=== PATIENT | female | born 1950 | race Caucasian/White ===

== ENCOUNTER 2020-12-07 22:11 | Emergency (ER) | payer MEDICARE, OTHER ==
[~2020-12-07] VITALS: Ht 150 cm; Wt 68.5 kg
--- NOTE | 2020-12-07 22:13 | ED General ---
General Stated Complaint: MUSCLE TWITCHING History of Present Illness Date Seen by Provider: Dec 07, 2020 Time Seen by Provider: 22:13 Initial Comments 70-year-old female presents her earlier this evening that she "got really hot" and that after she got really hot she kind got "sick to her stomach" patient reports that she just feels not well. Patient reports she did not vomit. She denies any urinary symptoms. She denies any cough, shortness of breath. Patient did have an episode at which she was "shaky" that resolved immediately after EMS arrived. Patient does not have any symptoms reported upon arrival to the ER that have continued. No reports of nausea, vomiting diarrhea Allergies and Home Medications Allergies Coded Allergies: No Known Drug Allergies (Unverified , 12/07/20) Patient Home Medication List Home Medication List Reviewed: Yes Review of Systems Review of Systems Constitutional: see HPI EENTM: no symptoms reported Respiratory: no symptoms reported Cardiovascular: no symptoms reported Gastrointestinal: no symptoms reported Genitourinary: no symptoms reported Musculoskeletal: no symptoms reported Skin: no symptoms reported Psychiatric/Neurological: See HPI Hematologic/Lymphatic: No Symptoms Reported Immunological/Allergic: no symptoms reported Physical Exam Vital Signs Vital Signs - First Documented 12/07/20 22:11 Temp 36.9 Pulse 88 Resp 22 B/P (MAP) 143/95 (111) Pulse Ox 97 O2 Delivery Room Air Capillary Refill : Height, Weight, BMI Height: '" Weight: lbs. oz. kg; BMI Method: General Appearance: WD/WN HEENT: PERRL/EOMI Neck: Full Range of Motion Respiratory: Lungs Clear, Normal Breath Sounds Cardiovascular: Regular Rate, Rhythm, No Edema Gastrointestinal: Non Tender Extremity: Normal Capillary Refill Neurologic/Psychiatric: Alert, No Motor/Sensory Deficits, sales route driver II-XII Norm as Tested Skin: Normal Color, Warm/Dry Progress/Results/Core Measures Suspected Sepsis SIRS Temperature: Pulse: Respiratory Rate: Laboratory Tests 12/07/20 22:15: White Blood Count 10.5 Blood Pressure / Mean: Laboratory Tests 12/07/20 22:15: Creatinine 0.88, Platelet Count 562H, Total Bilirubin 0.2 Results/Orders Lab Results Laboratory Tests Test 12/07/20 22:15 12/07/20 22:48 Range/Units White Blood Count 10.5 4.3-11.0 10^3/uL Red Blood Count 3.77 L 4.35-5.85 10^6/uL Hemoglobin 9.7 L 11.5-16.0 G/DL Hematocrit 31 L 35-52 % Mean Corpuscular Volume 81 80-99 FL Mean Corpuscular Hemoglobin 26 25-34 PG Mean Corpuscular Hemoglobin Concent 32 32-36 G/DL Red Cell Distribution Width 17.2 H 10.0-14.5 % Platelet Count 562 H 130-400 10^3/uL Mean Platelet Volume 9.7 7.4-10.4 FL Immature Granulocyte % (Auto) 0 % Neutrophils (%) (Auto) 63 42-75 % Lymphocytes (%) (Auto) 26 12-44 % Monocytes (%) (Auto) 8 0-12 % Eosinophils (%) (Auto) 2 0-10 % Basophils (%) (Auto) 1 0-10 % Neutrophils # (Auto) 6.6 1.8-7.8 X 10^3 Lymphocytes # (Auto) 2.7 1.0-4.0 X 10^3 Monocytes # (Auto) 0.8 0.0-1.0 X 10^3 Eosinophils # (Auto) 0.3 0.0-0.3 10^3/uL Basophils # (Auto) 0.1 0.0-0.1 10^3/uL Immature Granulocyte # (Auto) 0.0 0.0-0.1 10^3/uL Sodium Level 138 135-145 MMOL/L Potassium Level 3.5 L 3.6-5.0 MMOL/L Chloride Level 103 98-107 MMOL/L Carbon Dioxide Level 22 21-32 MMOL/L Anion Gap 13 5-14 MMOL/L Blood Urea Nitrogen 14 7-18 MG/DL Creatinine 0.88 0.60-1.30 MG/DL Estimat Glomerular Filtration Rate 63 BUN/Creatinine Ratio 16 Glucose Level 110 H 70-105 MG/DL Calcium Level 9.3 8.5-10.1 MG/DL Corrected Calcium 9.5 8.5-10.1 MG/DL Total Bilirubin 0.2 0.1-1.0 MG/DL Aspartate Amino Transf (AST/SGOT) 10 5-34 U/L Alanine Aminotransferase (ALT/SGPT) 5 0-55 U/L Alkaline Phosphatase 65 40-136 U/L C-Reactive Protein 12.98 H <0.50 MG/DL Total Protein 6.9 6.4-8.2 GM/DL Albumin 3.7 3.2-4.5 GM/DL Urine Color YELLOW Urine Clarity SLIGHTLY CLOUDY Urine pH 5.5 5-9 Urine Specific [place] 1.015 L 1.016-1.022 Urine Protein NEGATIVE NEGATIVE Urine Glucose (UA) NEGATIVE NEGATIVE Urine Ketones NEGATIVE NEGATIVE Urine Nitrite POSITIVE H NEGATIVE Urine Bilirubin NEGATIVE NEGATIVE Urine Urobilinogen 0.2 < = 1.0 MG/DL Urine Leukocyte Esterase TRACE H NEGATIVE Urine RBC (Auto) NEGATIVE NEGATIVE Urine RBC NONE /HPF Urine WBC 5-10 H /HPF Urine Squamous Epithelial Cells 5-10 /HPF Urine Crystals NONE /LPF Urine Bacteria LARGE H /HPF Urine Casts NONE /LPF Urine Mucus NEGATIVE /LPF Urine Culture Indicated YES My Orders Orders - BROWNLEE,TERRENCE L DO Cbc With Automated Diff (12/07/20 22:23) Comprehensive Metabolic Panel (12/07/20 22:23) Ua Culture If Indicated (12/07/20 22:23) Crp Fs (12/07/20 22:23) Covid 19 Inhouse Test (12/07/20 22:23) Influenza A And B By Pcr (12/07/20 22:23) Urine Culture (12/07/20 22:48) Rocephin 1 Gm Iv (1x Dose) (12/07/20 23:30) Vital Signs/I&O 12/07/20 22:11 Temp 36.9 Pulse 88 Resp 22 B/P (MAP) 143/95 (111) Pulse Ox 97 O2 Delivery Room Air Capillary Refill : Departure Impression Primary Impression: Urinary tract infection Qualified Codes: N30.01 - Acute cystitis with hematuria Disposition: HOME, SELF-CARE Condition: Stable Departure-Patient Inst. Patient Instructions: Urinary Tract Infection, Adult (DC) Add. Discharge Instructions: Follow-up with your primary care provider in 1 week to recheck your urine Scripts Nitrofurantoin Macrocrystal (Nitrofurantoin) 100 Mg Capsule 100 MG PO BID, #14 CAP 0 Refills Prov: BROWNLEE,TERRENCE L DO 12/07/20 BROWNLEE,TERRENCE L DO Dec 07, 2020 22:13
[2020-12-07 22:31] LABS: BASOPHILS # (AUTO) 0.1 10^3/uL (0.0-0.1); BASOPHILS % (AUTO) 1 % (0-10); EOSINOPHILS # (AUTO) 0.3 10^3/uL (0.0-0.3); EOSINOPHILS % (AUTO) 2 % (0-10); HEMATOCRIT 31 % (35-52); HEMOGLOBIN 9.7 G/DL (11.5-16.0); LYMPHOCYTES # (AUTO) 2.7 X 10^3 (1.0-4.0); LYMPHOCYTES % (AUTO) 26 % (12-44); MEAN CORPUSCULAR HEMOGLOBIN 26 PG (25-34); MEAN CORPUSCULAR HGB CONC 32 G/DL (32-36); MEAN CORPUSCULAR VOLUME 81 FL (80-99); MEAN PLATELET VOLUME 9.7 FL (7.4-10.4); MONOCYTES # (AUTO) 0.8 X 10^3 (0.0-1.0); MONOCYTES % (AUTO) 8 % (0-12); NEUTROPHILS # (AUTO) 6.6 X 10^3 (1.8-7.8); NEUTROPHILS % (AUTO) 63 % (42-75); PLATELET COUNT 562 10^3/uL (130-400); WHITE BLOOD COUNT 10.5 10^3/uL (4.3-11.0)
[2020-12-07 22:48] LABS: ALBUMIN 3.7 GM/DL (3.2-4.5); BILIRUBIN,TOTAL 0.2 MG/DL (0.1-1.0); CALCIUM 9.3 MG/DL (8.5-10.1); CREATININE SERUM 0.88 MG/DL (0.60-1.30); POTASSIUM 3.5 MMOL/L (3.6-5.0); TOTAL PROTEIN 6.9 GM/DL (6.4-8.2)
[2020-12-07 22:58] LABS: CLARITY,URINE SLIGHTLY CLOUDY; COLOR,URINE YELLOW
[2020-12-07 22:59] LABS: BACTERIA,URINE LARGE /HPF; BILIRUBIN,URINE NEGATIVE (NEGATIVE); GLUCOSE, URINE (UA) NEGATIVE (NEGATIVE); KETONES,URINE NEGATIVE (NEGATIVE); LEUKOCYTE ESTERASE ,URINE TRACE (NEGATIVE); NITRITE,URINE POSITIVE (NEGATIVE); PH,URINE 5.5 (5-9); PROTEIN,URINE NEGATIVE (NEGATIVE)
[2020-12-07] MEDS ORDERED: NITR100C PO (23:23)
[2020-12-07] MEDS ORDERED: cefTRIAXone 1,000 MG in WATER (STERILE) FOR INJECTION 10 ML IV ONE (23:30)
[2020-12-07] MEDS ORDERED: NITROFURANTOIN 100 MG (MACROBID) CAPSULE PO ONE (23:30)
[2020-12-07 23:31] VITALS: BP 142/88
--- OUTSIDE RECORDS SUMMARY | 2020-12-08 22:42 | XMS REPORT ---
Author Author Ana Neumann [facility] Address [address] [place], [place] [id number] Care Team Providers Care Single Needle Operator Name Role Phone Ulises Neumann PCP Ulises Neumann PreferredProvider Allergies and Adverse Reactions Name Reaction Notes NO KNOWN DRUG ALLERGIES Plan of Treatment Not available. Medications Active Name Start Date Estimated Completion Date SIG Co mments omeprazole 40 mg capsule,delayed release take 1 capsule (40 mg) by oral route once daily before a meal Voltaren 1 % topical gel apply 2 grams to the affected area(s) by topical route 4 times per day albuterol sulfate HFA 90 mcg/actuation aerosol inhaler inhale 1 puff (90 mcg) by inhalation route every 6 hours as needed Vitamin D3 25 mcg (1,000 unit) capsule ta ke 1 capsule by oral route daily docusate sodium 100 mg capsule t alex 1 capsule (100 mg) by oral route once daily meloxicam 7.5 mg tablet 11/21/2020 12/21/2020 take 1 t ablet by oral route once a day (at bedtime) for 30 days Tylenol Arthritis Pain 650 mg tablet,extended release 11/21/2020 12/21/2020 take 2 tablets (1,300 mg) by oral route every 8 hours swallowing whole with water. Do not break, crush, dissolve and/or chew. for 30 days sertraline 50 mg tablet 11/21/2020 02/19/2021 take 1 t ablet (50 mg) by oral route once daily for 90 days Name Start Date Expiration Date SIG Comments Macrobid 100 mg capsule 11/12/2020 11/19/2020 take 1 c apsule (100 mg) by oral route 2 times per day with food for 7 days Discontinued Name Start Date Discontinued Date SIG Comments tramadol 50 mg tablet 11/05/2020 11/21/2020 take 1 tab let by oral route 3 times a day as needed breakthrough arthritic pain Problem List Description Status Onset HTN (hypertension) Active Acid reflux Active Anxiety Active Vital Signs Date Time BP-Sys(mm[Hg] BP-Kandy(mm[Hg]) HR(bpm) RR(rpm) Temp WT HT HC BMI BSA BMI Percentile O2 Sat(%) 11/21/2020 8:15:00 AM 122 mm[Hg] 70 mm[Hg] 87 {beats}/min 18 rpm 98.6 F 155.312 lbs 59 in 31.369 kg/m2 1.7125 m2 95 % 11/05/2020 3:46:00 PM 134 mm[Hg] 82 mm[Hg] 103 {beats}/min 20 rpm 98.1 F 158 lbs 59 in 31.91 kg/m2 1.73 m2 95 % 10/01/2020 3:24:00 PM 150 mm[Hg] 88 mm[Hg] 88 {beats}/min 18 rpm 98.4 F 163 lbs 59 in 32.9217 kg/m2 1.7544 m2 97 % Social History Name Description Comments Tobacco Unknown if ever smoked History of Procedures Date Ordered Description Order Status 10/01/2020 12:00 AM COMPLETE CBC W/AUTO DIFF WBC Reviewed 10/01/2020 12:00 AM COMPREHEN METABOLIC PANEL Reviewed 10/01/2020 12:00 AM LIPID PANEL Reviewed 10/01/2020 12:00 AM ROUTINE VENIPUNCTURE Reviewed 11/05/2020 12:00 AM X-RAY EXAM OF KNEE 3 Returned 11/05/2020 12:00 AM X-RAY EXAM OF KNEE 3 Returned 11/27/2020 2:00 PM URINALYSIS AUTO W/O SCOPE Reviewed Results Summary Date and Description Results 10/01/2020 3:48 PM GLUCOSE 105 SODIUM 141 POTAS SIUM 4.9 CHLORIDE 99.0 mmol/LCO2 28 BUN 15.0 mg/dLCREATININE 0.90 mg/dLSGOT/AST 22 SGPT/ALT 14 ALK PHOS 80 TOTAL PROTEIN 6.9 ALBUMIN 4.2 TOTAL BILI 0.3 CALCIUM 9.60 mg/dLAGE 70 GFR NonAA 62 GFR AA 75 eGFR 62 mL/min/1.73meGFR AA* >60 mL/min/1.73mWBC 11.5 RBC 4.60 HGB 12.30 g/dLHCT 39.50 %MCV 86.0 fLMCH 26.70 pgMCHC 31.10 g/dLRDW SD 48 %RDW CV 15.30 %MPV 11.70 fLPLT 444 x10E3/uLNRBC# 0.00 NRBC% 0.0 %NEUT 64.7 %LYMP 25.6 %MONO 6.4 %EOS 2.3 %BASO 0.7 #NEUT 7.42 #LYMP 2.94 #MONO 0.73 #EOS 0.26 #BASO 0.08 MANUAL DIFF NOT IND TRIGLYCERIDES 226 CHOLESTEROL 190.0 mg/dLHDL 38 TOT CHOL/HDL 5.0 LDL (CALC) 107 11/21/2020 1:59 PM Urine-Color yellow Glucose U r-sCnc neg Bilirub Ur Ql neg Ketones Ur Ql Strip neg Sp Gr Ur Qn 1.020 Hgb Ur Ql Strip neg pH Ur-LsCnc 5.5 Prot Ur Ql Strip neg Urobilinogen Ur-mCnc 0.2 Nitrite Ur Ql Strip neg WBC # Ur trace History Of Immunizations Not available. History of Past Illness Name Date of Onset Comments HTN (hypertension) Anxiety Depression Acid reflux Breast Cancer Vertigo Hypertension Oct 01 2020 3:42PM Screening for ischemic heart disease Oct 01 2020 3:42PM HTN (hypertension) Oct 01 2020 3:27PM Acid reflux Oct 01 2020 3:27PM Other anxiety states Oct 01 2020 3:27PM Arthritis Oct 01 2020 3:27PM Pain in right knee Nov 05 2020 4:01PM Pain in left knee Nov 05 2020 4:01PM Pain in right knee Nov 05 2020 3:48PM Pain in left knee Nov 05 2020 3:48PM Pain in right knee Nov 21 2020 8:17AM Pain in left knee Nov 21 2020 8:17AM Other chronic pain Nov 21 2020 8:17AM Anxiety Nov 21 2020 8:17AM Payers Insurance Name Company Name Plan Name Plan Number Policy Number Andrea cy Group Number Start Date [facility] [id number] AAR - Medicare Complete 9 [id number] N/A [employer] [id number] N/A [facility] [id number] N/A [facility] [id number] [facility] Medicare Advantage PPO [id number] N/A History of Encounters Visit Date Visit Type Provider 11/21/2020 Office visit Ulises Neumann APR N 11/05/2020 Office visit Ulises Neumann APR N 10/01/2020 Office visit Ulises Neumann APR N 10/26/2019 [facility] Benji Rogers MD
--- OUTSIDE RECORDS SUMMARY | 2020-12-08 22:43 | XMS REPORT ---
Author Author Ana Neumann [facility] Address [address] [place], [place] [id number] Care Team Providers Care Medical Coding Instructor Name Role Phone Ulises Neumann PCP Ulises Neumann PreferredProvider Allergies and Adverse Reactions Name Reaction Notes NO KNOWN DRUG ALLERGIES Plan of Treatment Not available. Medications Active Name Start Date Estimated Completion Date SIG Co mments omeprazole 40 mg capsule,delayed release take 1 capsule (40 mg) by oral route once daily before a meal sertraline 50 mg tablet take 1 tablet (50 mg) by oral route once daily Voltaren 1 % topical gel apply 2 [...] (100 mg) by oral route once daily tramadol 50 mg tablet 11/05/2020 take 1 tab let by oral route 3 times a day as needed breakthrough arthritic pain Problem List Description Status Onset HTN (hypertension) Active Acid reflux Active Anxiety Active Vital Signs Date Time BP-Sys(mm[Hg] BP-Kandy(mm[Hg]) HR(bpm) RR(rpm) Temp WT HT HC BMI BSA BMI Percentile O2 Sat(%) 11/05/2020 3:46:00 PM 134 mm[Hg] 82 mm[Hg] 103 {beats}/min 20 rpm 98.1 F 158 lbs 59 in 31.9118 kg/m2 1.7272 m2 95 % 10/01/2020 3:24:00 PM 150 mm[Hg] 88 mm[Hg] 88 {beats}/min 18 rpm 98.4 F 163 lbs 59 in 32.92 kg/m2 1.75 m2 97 % Social History Name Description [...] AM X-RAY EXAM OF KNEE 3 Returned Results Summary Date and Description Results 10/01/2020 [...] 38 TOT CHOL/HDL 5.0 LDL (CALC) 107 History Of Immunizations Not available. History of [...] in left knee Nov 05 2020 3:48PM Payers Insurance Name Company Name Plan Name Plan Number Policy Number Andrea cy Group Number Start Date [facility] [address] [employer] Medicare Advantage PPO [id number] N/A [employer] [id number] N/A [facility] [id number] N/A History of Encounters Visit Date Visit Type Provider 11/05/2020 Office visit Ulises Neumann APR N 10/01/2020 Office visit Ulises Neumann APR N 10/26/2019 [facility] Benji Rogers MD
--- OUTSIDE RECORDS SUMMARY | 2020-12-08 22:43 | XMS REPORT ---
Author Author Ana Neumann [facility] Address [address] [place], [place] [id number] Care Team Providers Care Operating Room Specialist Name Role Phone Ulises Neumann PCP Ulises [...] Number Andrea cy Group Number Start Date [facility] [address] UHC Medicare Advantage PPO [id number] N/A [employer] [id number] N/A [facility] [id number] N/A History of Encounters Visit Date Visit Type Provider 11/05/2020 Office visit Ulises Neumann APR N 10/01/2020 Office visit Ulises Neumann APR N 10/26/2019 Hospital Benji Rogers MD
== END 2020-12-07 23:31 | disposition home or self-care (01) ==
LOC: ER FS 22:15
DX: N39.0 Urinary tract infection, site not specified (principal)
CPT/HCPCS: 36415; 80053; 81000; 85025; 86141; 87077; 87088; 87186; 99283